=== PATIENT | male | born 1990 | race Caucasian/White ===

== ENCOUNTER 2017-09-16 21:51 | Emergency (ER) | payer OTHER ==
[~2017-09-16] VITALS: Ht 182.9 cm; Wt 191.1 kg
[2017-09-16 21:57] VITALS: BP 192/93; PULSE 85; RESP 18; TEMP 98.5; O2SAT 95
[2017-09-16] MEDS ORDERED: CITA40TA4 PO (22:37)
[2017-09-16] MEDS ORDERED: ABIL10TA8 PO (22:37)
[2017-09-16] MEDS ORDERED: LEVO25TA4 PO (22:37)
[2017-09-16] MEDS ORDERED: OXYC1TAB63 PO (22:37)
[2017-09-16] MEDS ORDERED: TIOT1AER INH (22:37)
[2017-09-16] MEDS ORDERED: MORP-43 PO (22:37)
[2017-09-16] MEDS ORDERED: KETOROLAC TROMETHAMINE 60 MG/2 ML (IM) VIAL IM ONE (23:00)
--- NOTE | 2017-09-16 23:23 | PD ---
HPI Chief Complaint: Pain: Acute or Chronic Time Seen by Provider: 22:23 Travel History International Travel<30 days: No Contact w/Intl Traveler<30days: No Traveled to known affect area: No History of Present Illness HPI This patient complains of chronic and progressively worsening neck symptoms. He says about 3 years ago it started audibly cracking and popping and would cause him pain. 6 months ago he started passing out whenever he turned his neck a certain way and heard it pop. He is seen neurologists and pain management physicians and his primary physician and he is lacking any real diagnostic answers. He reports shooting pain down both arms. He denies true muscle weakness but sometimes has pain limitation. Symptoms moderate to severe in nature. Certain positions make things worse. No alleviating factors. PFSH Past Medical History Diminished Hearing: No Neurologic: Yes (arnold chiari malformation) Migraines: Yes Thyroid Disease: Yes (hypo) Tetanus Vaccination: Unknown Influenza Vaccination: Yes ?: Not Past Surgical History Cholecystectomy: Yes Social History Alcohol Use: Yes (occ) Tobacco Use: No Substance Use: No Allergies-Medications (Allergen,Severity, Reaction): Coded Allergies: No Known Allergies (Unverified , 09/16/17) Reported Meds & Prescriptions Reported Meds & Active Scripts Active Reported Stiolto Respimat Inh (Tiotropium-Olodaterol Inh) 2.5-2.5 Mcg/Act Aero 2 Puff INH DAILY Oxycodone-Acetaminophen 5-325 mg Tab 1 Tab PO Q6H PRN Morphabond ER 12 HR (Morphine Sulfate) 15 Mg Tab 15 Mg PO Q12H Levothyroxine (Levothyroxine Sodium) 25 Mcg Tab 25 Mcg PO DAILY Abilify (Aripiprazole) 10 Mg Tab 5 Mg PO DAILY Citalopram (Citalopram Hydrobromide) 40 Mg Tab 40 Mg PO DAILY Review of Systems General / Constitutional: No: Fever Eyes: No: Visual changes HENT: Positive: Neck Pain, No: Headaches Cardiovascular: No: Chest Pain or Discomfort Respiratory: No: Shortness of Breath Gastrointestinal: No: Abdominal Pain Genitourinary: No: Dysuria Musculoskeletal: Positive: Pain Skin: No Rash Neurologic: No: Weakness Psychiatric: No: Depression Endocrine: No: Polydipsia Hematologic/Lymphatic: No: Easy Bruising Physical Exam Narrative GENERAL: Morbidly obese well-developed patient in no apparent distress. SKIN: Focused skin assessment reveals no rash and nodules. Skin is Warm and dry. HEAD: Abrasion to the left forehead. Normocephalic. EYES: Pupils equal and round. No scleral icterus. No injection or drainage. ENT: No nasal bleeding or discharge. Mucous membranes pink and moist. NECK: Trachea midline. No JVD. No bruising or asymmetry. CARDIOVASCULAR: Regular rate and rhythm. No murmur appreciated. RESPIRATORY: No accessory muscle use. Clear to auscultation. Breath sounds equal bilaterally. GASTROINTESTINAL: Abdomen soft, non-tender, nondistended. Hepatic and splenic margins not palpable. MUSCULOSKELETAL: No obvious deformities. No clubbing. No cyanosis. No edema. NEUROLOGICAL: Awake and alert. No obvious cranial nerve deficits. Motor grossly within normal limits. Normal speech. PSYCHIATRIC: Appropriate mood and affect; insight and judgment normal. Data Data Last Documented VS Vital Signs Date Time Temp Pulse Resp B/P (MAP) Pulse Ox O2 Delivery O2 Flow Rate FiO2 09/16/17 22:35 18 09/16/17 21:57 98.5 85 192/93 (126) 95 Orders Orders Ketorolac Inj (Toradol Inj) (09/16/17 23:00) Mri C Spine W/O Contrast (09/16/17 ) Ed Discharge Order (09/16/17 23:16) [facility] Medical Decision Making Medical Screen Exam Complete: Yes Emergency Medical Condition: Yes Medical Record Reviewed: Yes Differential Diagnosis Disc herniation, spinal stenosis, radiculopathy Narrative Course I have reviewed the patient's electronic medical record. Etiology of his atypical presentation is not entirely clear. I don't feel routine imaging would be helpful here. We had a lengthy discussion and I have ordered cervical spine MRI. Unfortunately I am told that the MRI machine at this facility will not be able to accommodate this patient as he exceeds the weight limit. Therefore he will be driven up to the main hospital to obtain this test. Our charge nurse has discussed it with the main hospital charge nurse. I reviewed in detail with triage nurse Ministerio. I don't feel he needs formal immobilization. This is a chronic progressive condition and I don't see objective neurologic deficit. There is no acute injury causing this. Diagnosis Primary Impression: Neck pain Additional Impression: Radiculopathy Qualified Codes: M54.12 - Radiculopathy, cervical region Additional Instructions: Go to the main ER for cervical spine MRI Med/Other Pt SpecificInfo: Other Disposition: 01 DISCHARGE HOME Condition: Stable Erasmo Laura MD Sep 16, 2017 23:23
[2017-09-16 23:31] VITALS: BP 149/61
[2017-09-17] MEDS ORDERED: NAPR500 PO (04:28)
== END 2017-09-16 23:37 | disposition home or self-care (01) ==
LOC: PHED 21:51
DX: M54.12 Radiculopathy, cervical region (principal)
CPT/HCPCS: 96372; 99284; J1885

== ENCOUNTER 2017-09-17 00:02 | Emergency (ER) | payer OTHER ==
[~2017-09-17] VITALS: Ht 177.8 cm; Wt 191.0 kg
[~2017-09-17 00:02] MED LIST: ABIL10TA8 PO; CITA40TA4 PO; LEVO25TA4 PO; MORP-43 PO; OXYC1TAB63 PO; TIOT1AER INH
[2017-09-17 00:06] VITALS: BP 170/91; PULSE 79; RESP 18; TEMP 98; O2SAT 96
--- NOTE | 2017-09-17 01:42 | PD ---
HPI Chief Complaint: Medical Clearance Time Seen by Provider: 01:32 Travel History International Travel<30 days: No Contact w/Intl Traveler<30days: No Traveled to known affect area: No History of Present Illness HPI 27-year-old male who was seen at our other emergency Department in [place] earlier today, advised to present to our emergency department for emergent MRI of his cervical spine. The patient complains of "popping and clicking" in his neck that has been going on for the last 3 years, worse over the last 2 weeks. He states he has been seen by a neurologist in the past, but states they are not doing anything for him. He reports an occasional shooting sensation down both of his arms. No motor deficits or weakness. No fevers. No trauma. PFSH Past Medical History Diminished Hearing: No Neurologic: Yes (arnold chiari malformation) Migraines: Yes Thyroid Disease: Yes (hypo) Tetanus Vaccination: Unknown Influenza Vaccination: Yes Past Surgical History Cholecystectomy: Yes Social History Alcohol Use: Yes (occ) Tobacco Use: No Substance Use: No Allergies-Medications (Allergen,Severity, Reaction): Coded Allergies: No Known Allergies (Unverified , 09/17/17) Reported Meds & Prescriptions Reported Meds & Active Scripts Active Reported Stiolto Respimat Inh (Tiotropium-Olodaterol Inh) 2.5-2.5 Mcg/Act Aero 2 Puff INH DAILY Oxycodone-Acetaminophen 5-325 mg Tab 1 Tab PO Q6H PRN Morphabond ER 12 HR (Morphine Sulfate) 15 Mg Tab 15 Mg PO Q12H Levothyroxine (Levothyroxine Sodium) 25 Mcg Tab 25 Mcg PO DAILY Abilify (Aripiprazole) 10 Mg Tab 5 Mg PO DAILY Citalopram (Citalopram Hydrobromide) 40 Mg Tab 40 Mg PO DAILY Review of Systems Except as stated in HPI: all other systems reviewed are Neg Physical Exam Narrative GENERAL: Well-developed, well-nourished, overweight, comfortable, no apparent distress. SKIN: Focused skin assessment warm/dry. HEAD: Atraumatic. Normocephalic. EYES: Pupils equal and round. No scleral icterus. No injection or drainage. ENT: No nasal bleeding or discharge. NECK: Trachea midline. No JVD. No midline cervical spine step-off or tenderness. CARDIOVASCULAR: Regular rate and rhythm. RESPIRATORY: No accessory muscle use. Clear to auscultation. Breath sounds equal bilaterally. GASTROINTESTINAL: Abdomen soft, non-tender, nondistended. MUSCULOSKELETAL: No obvious deformities. No clubbing. No cyanosis. No edema. NEUROLOGICAL: Awake and alert. No obvious cranial nerve deficits. Motor grossly within normal limits. Normal speech. No focal deficits. PSYCHIATRIC: Appropriate mood and affect; insight and judgment normal. Data Data Last Documented VS Vital Signs Date Time Temp Pulse Resp B/P (MAP) Pulse Ox O2 Delivery O2 Flow Rate FiO2 09/17/17 02:12 77 18 141/65 (90) 96 Room Air 09/17/17 00:06 98.0 Orders Orders Mri C Spine W/O Contrast (09/17/17 01:37) Ketorolac Inj (Toradol Inj) (09/17/17 02:15) Lorazepam Inj (Ativan Inj) (09/17/17 03:00) Ed Discharge Order (09/17/17 04:18) [facility] Medical Decision Making Medical Screen Exam Complete: Yes Emergency Medical Condition: Yes Differential Diagnosis Cervical spine abnormality, myelodysplasia Narrative Course MRI C-spine read as unremarkable exam. The patient has no neurologic deficits on exam. He was made aware of MRI C- spine findings and provided a copy of this report. He was advised to follow-up with his neurologist this week. He was informed on when to return to the emergency department. He verbalizes understanding and agreement with plan. Diagnosis Primary Impression: Neck pain Additional Impression: Radiculopathy Qualified Codes: M54.12 - Radiculopathy, cervical region Referrals: Primary Care Physician 3 days Additional Instructions: Follow-up with a primary care physician this week. Follow-up with your neurologist this week. Return to the emergency department for worsening symptoms or any other concerns. Scripts Naproxen (Naprosyn) 500 Mg Tab 500 MG PO BID for 7 Days, #14 TAB 0 Refills Prov: Mateo Burt MD 09/17/17 Disposition: 01 DISCHARGE HOME Condition: Stable Mateo Burt MD Sep 17, 2017 01:42
[2017-09-17 02:12] VITALS: BP 141/65; PULSE 77; RESP 18; O2SAT 96
[2017-09-17] MEDS ORDERED: KETOROLAC TROMETHAMINE 60 MG/2 ML (IM) VIAL IM ONE (02:15)
[2017-09-17] MEDS ORDERED: LORazepam 2 MG/ML VIAL IM ONE (03:00)
--- NOTE | 2017-09-17 04:11 | RADRPT ---
EXAM DATE/TIME: 09/17/2017 02:42 [facility] COMPARISON: No previous studies available for comparison. INDICATIONS : Neck pain syncope and inability to control legs. MEDICAL HISTORY : None. SURGICAL HISTORY : Cholecystectomy. ENCOUNTER: Initial ACUITY: 1 day PAIN SCORE: 5/10 LOCATION: [facility] TECHNIQUE: Multiplanar, multisequence MRI examination of the cervical spine was performed. FINDINGS: VERTEBRAE: Normal vertebral body height. Homogeneous marrow signal. ALIGNMENT: No evidence of subluxation. CORD: Normal configuration and signal. POST FOSSA: The cerebellar tonsils are normal in position. C2-C3: The thecal sac has a normal configuration. There is no evidence of disc herniation or spinal canal s tenosis. The neural foramina are patent bilaterally. C3-C4: The thecal sac has a normal configuration. There is no evidence of disc herniation or spinal canal s tenosis. The neural foramina are patent bilaterally. C4-C5: The thecal sac has a normal configuration. There is no evidence of disc herniation or spinal canal s tenosis. The neural foramina are patent bilaterally. C5-C6: The thecal sac has a normal configuration. There is no evidence of disc herniation or spinal canal s tenosis. The neural foramina are patent bilaterally. C6-C7: The thecal sac has a normal configuration. There is no evidence of disc herniation or spinal canal s tenosis. The neural foramina are patent bilaterally. C7-T1: The thecal sac has a normal configuration. There is no evidence of disc herniation or spinal canal s tenosis. The neural foramina are patent bilaterally. CONCLUSION: Unremarkable exam. Chun Ornelas MD on September 17, 2017 at 4:07 Board Certified Radiologist. This report was verified electronically.
[2017-09-17] MEDS ORDERED: NAPR500 PO (04:28)
[2017-09-17 04:30] VITALS: BP 161/67; PULSE 77; RESP 17; O2SAT 95
== END 2017-09-17 04:38 | disposition home or self-care (01) ==
LOC: NEPE 00:02
DX: M54.12 Radiculopathy, cervical region (principal); E03.9 Hypothyroidism, unspecified; Q07.00 Arnold-Chiari syndrome without spina bifida or hydrocephalus; Z79.899 Other long term (current) drug therapy
CPT/HCPCS: 72141; 96372; 99285; J1885; J2060